=== PATIENT | male | born 1930 | race Caucasian/White ===

== ENCOUNTER 2017-06-15 10:44 | Inpatient (IN) | payer OTHER ==
[~2017-06-15] VITALS: Ht 172.7 cm; Wt 71.8 kg
[2017-06-15 11:54] LABS: HEMATOCRIT 34.4 % (38.0-50.0); HEMOGLOBIN 11.9 G/DL (12.5-16.6); MCH 32.7 PG (29.0-34.0); MCHC 34.6 G/DL (30.0-36.0); MCV 94.5 FL (86-99); PLATELET COUNT 277 K/uL (156-360); RBC DIS.WIDTH-CV 13.1 % (11.8-14.6); RBC DIS.WIDTH-SD 44.7 % (39-53); RED BLOOD COUNT 3.64 M/uL (4.00-5.50); WHITE BLOOD COUNT 9.3 K/uL (4.1-10.2)
[2017-06-15 12:07] LABS: ALBUMIN 3.3 g/dL (3.2-4.8); CHLORIDE 103 mEq/L (99-109); POTASSIUM 4.2 mEq/L (3.7-5.4); SODIUM 136 mEq/L (136-147)
[2017-06-15 12:08] LABS: MAGNESIUM 2.3 mg/dL (1.3-2.7)
[2017-06-15 12:10] LABS: GLUCOSE 112 mg/dL (70-99); TOTAL PROTEIN 6.5 g/dL (6.4-8.3)
[2017-06-15 12:12] LABS: TOTAL BILIRUBIN 0.7 mg/dL (0.0-1.0)
[2017-06-15 12:13] LABS: ALKALINE PHOSPHATASE 86 IU/L (3-129)
[2017-06-15 12:14] LABS: GFR ESTIMATE (CALCULATED) > 59 mL/min/ (58.99-99999)
[2017-06-15 12:15] LABS: AST (GOT) 14 IU/L (2-34); UREA NITROGEN (BUN) 14 mg/dL (9-23)
[2017-06-15 12:16] LABS: ALT (GPT) 13 IU/L (3-49)
[2017-06-15 12:20] LABS: TROP-I INTERPRETATION NEGATIVE; TROPONIN-I 0.09 ng/mL (0.0-0.30)
[2017-06-15] MEDS ORDERED: LO-DOSE ASPIRIN81 M2 PO (13:10)
[2017-06-15] MEDS ORDERED: LIPITOR80 MG PO (13:10)
[2017-06-15] MEDS ORDERED: LASIX20 MG PO (13:11)
[2017-06-15] MEDS ORDERED: COREG3.125 M1 PO (13:11)
[2017-06-15] MEDS ORDERED: VITAMIN B-12500 MC5 SL (13:11)
[2017-06-15] MEDS ORDERED: PLAVIX75 MG PO (13:11)
[2017-06-15] MEDS ORDERED: FOLIC ACID1 MG PO (13:11)
[2017-06-15] MEDS ORDERED: ATARAX,VISTARIL25 MG PO (13:12)
[2017-06-15] MEDS ORDERED: IMDUR30 MG PO (13:13)
[2017-06-15] MEDS ORDERED: NITROSTAT0.4 MG SL (13:17)
[2017-06-15 15:33] LABS: TROP-I INTERPRETATION INDETERMINATE
[2017-06-15 17:05] VITALS: BP 135/90
[2017-06-15 19:15] VITALS: BP 118/73
[2017-06-15 20:59] LABS: TROP-I INTERPRETATION POSITIVE; TROPONIN-I 3.11 ng/mL (0.0-0.30)
[2017-06-15 23:11] VITALS: BP 124/75
[2017-06-16 03:34] VITALS: BP 130/73
[2017-06-16 07:05] VITALS: BP 122/79
[2017-06-16 08:42] LABS: HEMATOCRIT 36.2 % (38.0-50.0); MCH 31.6 PG (29.0-34.0); MCHC 33.1 G/DL (30.0-36.0); MCV 95.3 FL (86-99); PLATELET COUNT 253 K/uL (156-360); RBC DIS.WIDTH-CV 13.2 % (11.8-14.6); WHITE BLOOD COUNT 7.3 K/uL (4.1-10.2)
[2017-06-16 10:25] LABS: CREATININE 1.1 MG/DL (0.6-1.3); GFR ESTIMATE (CALCULATED) > 59 mL/min/ (58.99-99999); GLUCOSE 110 mg/dL (70-99); UREA NITROGEN (BUN) 17 mg/dL (9-23)
[2017-06-16 11:29] LABS: CHLORIDE 101 MEQ/L (99-109); POTASSIUM 3.9 MEQ/L (3.7-5.4); SODIUM 136 MEQ/L (136-147)
[2017-06-16 11:50] VITALS: BP 90/54
[2017-06-16 13:52] LABS: TROP-I INTERPRETATION POSITIVE; TROPONIN-I 7.25 ng/mL (0.0-0.30)
[2017-06-16 14:40] VITALS: BP 98/54
[2017-06-16 18:25] LABS: TROP-I INTERPRETATION POSITIVE
[2017-06-16 19:15] VITALS: BP 103/60
[2017-06-17] VITALS: BP 97/61
[2017-06-17 04:00] VITALS: BP 98/50
[2017-06-17 05:17] LABS: BASOPHIL (%) 0.5 % (0-1); EOSINOPHIL (%) 2.2 % (0-5); EOSINOPHIL COUNT 0.2 K/uL (0-0.3); HEMATOCRIT 31.3 % (38.0-50.0); HEMOGLOBIN 10.5 G/DL (12.5-16.6); IMMATURE GRANULOCYTE (%) 0.5 % (0.0-0.7); LYMPHOCYTE (%) 13.1 % (15-42); MCH 31.7 PG (29.0-34.0); MCHC 33.5 G/DL (30.0-36.0); MCV 94.6 FL (86-99); MONOCYTE (%) 8.2 % (3-12); MONOCYTE COUNT 0.6 K/uL (0-0.8); NEUTROPHIL (%) 75.5 % (45-76); NEUTROPHIL COUNT 5.5 K/uL (1.8-6.4); PLATELET COUNT 207 K/uL (156-360); RBC DIS.WIDTH-CV 13.2 % (11.8-14.6); RBC DIS.WIDTH-SD 44.8 % (39-53); RED BLOOD COUNT 3.31 M/uL (4.00-5.50); WHITE BLOOD COUNT 7.3 K/uL (4.1-10.2)
[2017-06-17 05:47] LABS: CHLORIDE 102 MEQ/L (99-109); CREATININE 1.2 MG/DL (0.6-1.3); GFR ESTIMATE (CALCULATED) > 59 mL/min/ (58.99-99999); GLUCOSE 91 mg/dL (70-99); POTASSIUM 3.9 MEQ/L (3.7-5.4); SODIUM 134 MEQ/L (136-147); UREA NITROGEN (BUN) 20 mg/dL (9-23)
[2017-06-17 05:57] LABS: TROP-I INTERPRETATION POSITIVE; TROPONIN-I 4.96 ng/mL (0.0-0.30)
[2017-06-17 07:30] VITALS: BP 114/67
[2017-06-17 11:12] VITALS: BP 126/79
[2017-06-17] MEDS ORDERED: RANEXA500 MG PO (12:32)
== END 2017-06-17 16:08 | disposition home health service (06) | DRG 282 ==
LOC: EME 10:44 → EDOF 14:28 → ENRESERV 14:29 → 4SOUTH 16:48
PROVIDERS: Family Medicine; Internal Medicine; Internal Medicine Cardiovascular Disease
DX: I22.2 Subsequent non-ST elevation (NSTEMI) myocardial infarction (principal); I21.4 Non-ST elevation (NSTEMI) myocardial infarction; I11.0 Hypertensive heart disease with heart failure; I50.9 Heart failure, unspecified; I25.10 Atherosclerotic heart disease of native coronary artery without angina pectoris; E78.5 Hyperlipidemia, unspecified; I35.0 Nonrheumatic aortic (valve) stenosis; F41.9 Anxiety disorder, unspecified; Z95.5 Presence of coronary angioplasty implant and graft; Z95.0 Presence of cardiac pacemaker; Z79.02 Long term (current) use of antithrombotics/antiplatelets; Z79.82 Long term (current) use of aspirin; Z87.891 Personal history of nicotine dependence
CPT/HCPCS: 71045; 80048; 80053; 83735; 83880; 84484; 85025; 85027; 85730; 93005; 93306; 99281; 99285; G0378; J1650; J7030; J7040; Q0177

== ENCOUNTER 2017-07-13 14:52 | Inpatient (IN) | payer OTHER ==
[~2017-07-13] VITALS: Ht 177.8 cm; Wt 72.5 kg
[~2017-07-13 14:52] MED LIST: ATARAX,VISTARIL25 MG PO; COREG6.25 M1 PO; FOLIC ACID1 MG PO; IMDUR30 MG PO; LASIX20 MG PO; LIPITOR80 MG PO; LO-DOSE ASPIRIN81 M2 PO; NITROSTAT0.4 MG SL; PLAVIX75 MG PO; RANEXA500 MG PO; VITAMIN B-12500 MC5 SL
[2017-07-13 16:36] LABS: BASOPHIL (%) 0.4 % (0-1); EOSINOPHIL (%) 3.2 % (0-5); EOSINOPHIL COUNT 0.2 K/uL (0-0.3); HEMOGLOBIN 9.1 G/DL (12.5-16.6); IMMATURE GRANULOCYTE (%) 0.4 % (0.0-0.7); LYMPHOCYTE (%) 11.6 % (15-42); LYMPHOCYTE COUNT 0.6 K/uL (1.0-2.8); MCH 32.2 PG (29.0-34.0); MCV 91.9 FL (86-99); MONOCYTE (%) 13.5 % (3-12); MONOCYTE COUNT 0.7 K/uL (0-0.8); NEUTROPHIL (%) 70.9 % (45-76); NEUTROPHIL COUNT 3.7 K/uL (1.8-6.4); PLATELET COUNT 213 K/uL (156-360); RBC DIS.WIDTH-CV 13.9 % (11.8-14.6); RBC DIS.WIDTH-SD 47.2 % (39-53); RED BLOOD COUNT 2.83 M/uL (4.00-5.50); WHITE BLOOD COUNT 5.2 K/uL (4.1-10.2)
[2017-07-13 16:45] LABS: INTER. NORMALIZED RATIO 1.1
[2017-07-13 16:48] LABS: CHLORIDE 94 mEq/L (99-109); POTASSIUM 4.6 mEq/L (3.7-5.4); SODIUM 127 mEq/L (136-147)
[2017-07-13 16:49] LABS: GLUCOSE 83 mg/dL (70-99)
[2017-07-13 16:50] LABS: PTT 30.8 SEC (25-37)
[2017-07-13 16:53] LABS: CREATININE 1.1 mg/dL (0.6-1.3); GFR ESTIMATE (CALCULATED) > 59 mL/min/ (58.99-99999)
[2017-07-13 16:54] LABS: UREA NITROGEN (BUN) 12 mg/dL (9-23)
[2017-07-13 16:58] LABS: TROP-I INTERPRETATION NEGATIVE; TROPONIN-I 0.08 ng/mL (0.0-0.30)
[2017-07-13 17:42] LABS: HDL CHOLESTEROL 44 MG/DL (Desirable>=40); LDL CHOLESTEROL 42 mg/dL (Desirable<100); NON-HDL CHOLESTEROL 52 mg/dL (Desirable<160); TOTAL CHOLESTEROL 96 mg/dL (Desirable<200); TRIGLYCERIDES 48 MG/DL (Normal: <150)
[2017-07-13 18:17] LABS: APPEARANCE CLEAR ((CLEAR)); BILIRUBIN NEGATIVE; BLOOD NEGATIVE; COLOR YELLOW ((YELLOW)); GLUCOSE (STRIP) NEGATIVE; KETONES NEGATIVE; LEUKOCYTES NEGATIVE; NITRITE NEGATIVE; PROTEIN (STRIP) NEGATIVE; SPECIFIC GRAVITY 1.009 (1.000-1.030); UCUL ADDED? NO; UROBILINOGEN 0.2 MG/DL (0.2-1.0)
[2017-07-13] MEDS ORDERED: PRINIVIL5 MG PO (20:47)
[2017-07-13] MEDS ORDERED: ZOLOFT50 MG PO (20:48)
[2017-07-13] MEDS ORDERED: ZESTRIL2.5 MG PO (22:51)
[2017-07-13] MEDS ORDERED: ATARAX10 MG PO (22:54)
[2017-07-14 00:47] VITALS: BP 148/64
[2017-07-14 03:32] VITALS: BP 98/50
[2017-07-14 07:05] VITALS: BP 151/69
[2017-07-14 09:03] LABS: BASOPHIL (%) 0.7 % (0-1); EOSINOPHIL (%) 3.3 % (0-5); EOSINOPHIL COUNT 0.2 K/uL (0-0.3); HEMATOCRIT 26.6 % (38.0-50.0); IMMATURE GRANULOCYTE (%) 0.2 % (0.0-0.7); LYMPHOCYTE (%) 13.4 % (15-42); LYMPHOCYTE COUNT 0.6 K/uL (1.0-2.8); MCH 31.1 PG (29.0-34.0); MCHC 33.8 G/DL (30.0-36.0); MONOCYTE COUNT 0.6 K/uL (0-0.8); NEUTROPHIL (%) 69.4 % (45-76); NEUTROPHIL COUNT 3.2 K/uL (1.8-6.4); PLATELET COUNT 217 K/uL (156-360); RBC DIS.WIDTH-CV 14.1 % (11.8-14.6); RBC DIS.WIDTH-SD 47.1 % (39-53); RED BLOOD COUNT 2.89 M/uL (4.00-5.50); WHITE BLOOD COUNT 4.5 K/uL (4.1-10.2)
[2017-07-14 09:24] LABS: CHLORIDE 95 MEQ/L (99-109); CREATININE 1.3 MG/DL (0.6-1.3); GFR ESTIMATE (CALCULATED) 55 mL/min/ (58.99-99999); GLUCOSE 99 mg/dL (70-99); POTASSIUM 3.9 MEQ/L (3.7-5.4); SODIUM 128 MEQ/L (136-147); UREA NITROGEN (BUN) 13 mg/dL (9-23)
[2017-07-14 11:08] VITALS: BP 107/53
[2017-07-14 15:17] VITALS: BP 113/56
[2017-07-14 15:56] LABS: THYROTROPIN (TSH) 3.2 MIU/L (0.4-5.5)
[2017-07-14 19:19] VITALS: BP 114/56
[2017-07-15] VITALS (8 sets, daily range): BP systolic 82–127; BP diastolic 51–60
[2017-07-15 08:07] LABS: BASOPHIL (%) 0.4 % (0-1); EOSINOPHIL (%) 4.6 % (0-5); EOSINOPHIL COUNT 0.2 K/uL (0-0.3); HEMATOCRIT 27.4 % (38.0-50.0); HEMOGLOBIN 9.3 G/DL (12.5-16.6); IMMATURE GRANULOCYTE (%) 0.4 % (0.0-0.7); LYMPHOCYTE (%) 16.2 % (15-42); LYMPHOCYTE COUNT 0.7 K/uL (1.0-2.8); MCH 31.4 PG (29.0-34.0); MCHC 33.9 G/DL (30.0-36.0); MCV 92.6 FL (86-99); MONOCYTE (%) 11.6 % (3-12); MONOCYTE COUNT 0.5 K/uL (0-0.8); NEUTROPHIL (%) 66.8 % (45-76); PLATELET COUNT 202 K/uL (156-360); RBC DIS.WIDTH-CV 14.3 % (11.8-14.6); RBC DIS.WIDTH-SD 48.1 % (39-53); RED BLOOD COUNT 2.96 M/uL (4.00-5.50); WHITE BLOOD COUNT 4.6 K/uL (4.1-10.2)
[2017-07-15 08:29] LABS: CHLORIDE 94 MEQ/L (99-109); CREATININE 1.2 MG/DL (0.6-1.3); GFR ESTIMATE (CALCULATED) > 59 mL/min/ (58.99-99999); GLUCOSE 94 mg/dL (70-99); POTASSIUM 4.1 MEQ/L (3.7-5.4); SODIUM 128 MEQ/L (136-147); UREA NITROGEN (BUN) 16 mg/dL (9-23)
[2017-07-16 06:34] LABS: BASOPHIL (%) 0.2 % (0-1); EOSINOPHIL (%) 4.8 % (0-5); EOSINOPHIL COUNT 0.2 K/uL (0-0.3); HEMATOCRIT 24.8 % (38.0-50.0); HEMOGLOBIN 8.5 G/DL (12.5-16.6); IMMATURE GRANULOCYTE (%) 0.6 % (0.0-0.7); LYMPHOCYTE (%) 13.5 % (15-42); LYMPHOCYTE COUNT 0.7 K/uL (1.0-2.8); MCH 31.8 PG (29.0-34.0); MCHC 34.3 G/DL (30.0-36.0); MCV 92.9 FL (86-99); MONOCYTE (%) 10.4 % (3-12); MONOCYTE COUNT 0.5 K/uL (0-0.8); NEUTROPHIL (%) 70.5 % (45-76); NEUTROPHIL COUNT 3.5 K/uL (1.8-6.4); PLATELET COUNT 190 K/uL (156-360); RBC DIS.WIDTH-CV 14.3 % (11.8-14.6); RBC DIS.WIDTH-SD 48.4 % (39-53); RED BLOOD COUNT 2.67 M/uL (4.00-5.50)
[2017-07-16 06:58] LABS: CHLORIDE 96 MEQ/L (99-109); CREATININE 1.2 MG/DL (0.6-1.3); GFR ESTIMATE (CALCULATED) > 59 mL/min/ (58.99-99999); GLUCOSE 92 mg/dL (70-99); POTASSIUM 3.9 MEQ/L (3.7-5.4); SODIUM 126 MEQ/L (136-147); UREA NITROGEN (BUN) 17 mg/dL (9-23)
[2017-07-16 08:01] VITALS: BP 126/59
[2017-07-16 10:19] LABS: HEMOGLOBIN A1c (GLYCOHEMOGLOB) 5.9 % (Below 5.7)
[2017-07-17 00:10] VITALS: BP 115/54
[2017-07-17 05:56] LABS: BASOPHIL (%) 0.4 % (0-1); EOSINOPHIL (%) 5.3 % (0-5); EOSINOPHIL COUNT 0.3 K/uL (0-0.3); HEMATOCRIT 26.2 % (38.0-50.0); HEMOGLOBIN 8.7 G/DL (12.5-16.6); IMMATURE GRANULOCYTE (%) 0.6 % (0.0-0.7); LYMPHOCYTE (%) 14.5 % (15-42); LYMPHOCYTE COUNT 0.7 K/uL (1.0-2.8); MCHC 33.2 G/DL (30.0-36.0); MCV 93.2 FL (86-99); MONOCYTE (%) 10.2 % (3-12); MONOCYTE COUNT 0.5 K/uL (0-0.8); NEUTROPHIL COUNT 3.5 K/uL (1.8-6.4); PLATELET COUNT 205 K/uL (156-360); RBC DIS.WIDTH-CV 14.2 % (11.8-14.6); RBC DIS.WIDTH-SD 48.4 % (39-53); RED BLOOD COUNT 2.81 M/uL (4.00-5.50); WHITE BLOOD COUNT 5.1 K/uL (4.1-10.2)
[2017-07-17 06:20] LABS: ALBUMIN 2.8 G/DL (3.2-4.8); ALKALINE PHOSPHATASE 66 IU/L (3-129); ALT (GPT) 10 IU/L (3-49); AST (GOT) 13 IU/L (2-34); CHLORIDE 96 MEQ/L (99-109); CREATININE 1.2 MG/DL (0.6-1.3); GFR ESTIMATE (CALCULATED) > 59 mL/min/ (58.99-99999); GLUCOSE 90 mg/dL (70-99); POTASSIUM 4.4 MEQ/L (3.7-5.4); SODIUM 128 MEQ/L (136-147); TOTAL BILIRUBIN 0.4 MG/DL (0.0-1.0); TOTAL PROTEIN 5.3 G/DL (6.4-8.3); UREA NITROGEN (BUN) 19 mg/dL (9-23)
[2017-07-17 07:13] VITALS: BP 126/61
[2017-07-17 10:25] LABS: HEPATITIS C ANTIBODY Nonreactive
[2017-07-17 15:26] VITALS: BP 117/58
[2017-07-17 23:52] VITALS: BP 115/59
[2017-07-18 05:26] LABS: BASOPHIL (%) 0.4 % (0-1); EOSINOPHIL (%) 4.7 % (0-5); EOSINOPHIL COUNT 0.2 K/uL (0-0.3); HEMATOCRIT 23.9 % (38.0-50.0); HEMOGLOBIN 8.2 G/DL (12.5-16.6); IMMATURE GRANULOCYTE (%) 0.4 % (0.0-0.7); LYMPHOCYTE (%) 14.8 % (15-42); LYMPHOCYTE COUNT 0.7 K/uL (1.0-2.8); MCH 31.9 PG (29.0-34.0); MCHC 34.3 G/DL (30.0-36.0); MONOCYTE COUNT 0.5 K/uL (0-0.8); NEUTROPHIL (%) 69.7 % (45-76); NEUTROPHIL COUNT 3.3 K/uL (1.8-6.4); PLATELET COUNT 190 K/uL (156-360); RBC DIS.WIDTH-CV 14.4 % (11.8-14.6); RBC DIS.WIDTH-SD 49.5 % (39-53); RED BLOOD COUNT 2.57 M/uL (4.00-5.50); WHITE BLOOD COUNT 4.7 K/uL (4.1-10.2)
[2017-07-18 05:57] LABS: CHLORIDE 96 MEQ/L (99-109); CREATININE 1.4 MG/DL (0.6-1.3); GFR ESTIMATE (CALCULATED) 51 mL/min/ (58.99-99999); GLUCOSE 95 mg/dL (70-99); POTASSIUM 4.2 MEQ/L (3.7-5.4); SODIUM 127 MEQ/L (136-147); UREA NITROGEN (BUN) 20 mg/dL (9-23)
[2017-07-18 08:15] VITALS: BP 125/61
[2017-07-18 15:36] VITALS: BP 105/54
[2017-07-18 16:31] VITALS: BP 110/58
[2017-07-18 23:34] VITALS: BP 102/50
[2017-07-19 05:49] LABS: BASOPHIL (%) 0.4 % (0-1); EOSINOPHIL COUNT 0.2 K/uL (0-0.3); HEMATOCRIT 23.8 % (38.0-50.0); IMMATURE GRANULOCYTE (%) 0.6 % (0.0-0.7); LYMPHOCYTE (%) 14.1 % (15-42); LYMPHOCYTE COUNT 0.7 K/uL (1.0-2.8); MCH 31.6 PG (29.0-34.0); MCHC 33.6 G/DL (30.0-36.0); MCV 94.1 FL (86-99); MONOCYTE (%) 9.6 % (3-12); MONOCYTE COUNT 0.5 K/uL (0-0.8); NEUTROPHIL (%) 70.3 % (45-76); NEUTROPHIL COUNT 3.4 K/uL (1.8-6.4); PLATELET COUNT 191 K/uL (156-360); RBC DIS.WIDTH-CV 14.6 % (11.8-14.6); RED BLOOD COUNT 2.53 M/uL (4.00-5.50); WHITE BLOOD COUNT 4.8 K/uL (4.1-10.2)
[2017-07-19 06:16] LABS: CHLORIDE 95 MEQ/L (99-109); CREATININE 1.2 MG/DL (0.6-1.3); GFR ESTIMATE (CALCULATED) > 59 mL/min/ (58.99-99999); GLUCOSE 88 mg/dL (70-99); POTASSIUM 4.3 MEQ/L (3.7-5.4); SODIUM 128 MEQ/L (136-147); UREA NITROGEN (BUN) 20 mg/dL (9-23)
[2017-07-19 07:57] VITALS: BP 153/68
[2017-07-19] MEDS ORDERED: SODIUM CHLORIDE1 G1 PO (11:17)
[2017-07-19] MEDS ORDERED: NITROSTAT0.4 MG SL (14:52)
[2017-07-19] MEDS ORDERED: RANEXA500 MG PO (14:52)
== END 2017-07-19 15:50 | disposition home or self-care (01) | DRG 69 ==
LOC: EME 14:52 → EDOF 22:47 → ENRESERV 22:57 → 5SOUTH 07-14 00:25 → EDOF 07-14 00:25 → 5SOUTH 07-14 14:45
PROVIDERS: Emergency Medicine; Internal Medicine Nephrology; Physician Assistant
DX: G45.9 Transient cerebral ischemic attack, unspecified (principal); E22.2 Syndrome of inappropriate secretion of antidiuretic hormone; I65.23 Occlusion and stenosis of bilateral carotid arteries; I25.10 Atherosclerotic heart disease of native coronary artery without angina pectoris; Z95.0 Presence of cardiac pacemaker; I13.0 Hypertensive heart and chronic kidney disease with heart failure and stage 1 through stage 4 chronic kidney disease, or unspecified chronic kidney disease; N18.3 Chronic kidney disease, stage 3 (moderate); Z95.5 Presence of coronary angioplasty implant and graft; R73.03 Prediabetes; I25.2 Old myocardial infarction; Z79.02 Long term (current) use of antithrombotics/antiplatelets; Z79.82 Long term (current) use of aspirin; D64.9 Anemia, unspecified; Z87.891 Personal history of nicotine dependence; Z82.49 Family history of ischemic heart disease and other diseases of the circulatory system; Z91.013 Allergy to seafood; R26.9 Unspecified abnormalities of gait and mobility
CPT/HCPCS: 70496; 70498; 71046; 76705; 76770; 80048; 80053; 80061; 81003; 82533 91; 83036; 83930; 83935; 84300; 84443; 84484; 85025; 85610; 85730; 86803; 93005; 97530 GO; 99281; 99285; G0378; J1644; J7030; J7040

== ENCOUNTER 2017-10-05 20:04 | Observation (INO) | payer OTHER ==
[~2017-10-05] VITALS: Ht 177.8 cm; Wt 66.4 kg
[~2017-10-05 20:04] MED LIST changes: +PRINIVIL5 MG PO; +SODIUM CHLORIDE1 G1 PO; +ZESTRIL2.5 MG PO; +ZOLOFT50 MG PO
[2017-10-05 20:38] LABS: HEMATOCRIT 27.6 % (38.0-50.0); MCH 30.8 PG (29.0-34.0); MCHC 32.6 G/DL (30.0-36.0); MCV 94.5 FL (86-99); PLATELET COUNT 240 K/uL (156-360); RBC DIS.WIDTH-CV 18.7 % (11.8-14.6); RBC DIS.WIDTH-SD 65.1 % (39-53); RED BLOOD COUNT 2.92 M/uL (4.00-5.50); WHITE BLOOD COUNT 6.1 K/uL (4.1-10.2)
[2017-10-05 20:46] LABS: CHLORIDE 109 mEq/L (99-109); POTASSIUM 4.9 mEq/L (3.7-5.4)
[2017-10-05 20:47] LABS: SODIUM 142 mEq/L (136-147)
[2017-10-05 20:49] LABS: GLUCOSE 115 mg/dL (70-99)
[2017-10-05 20:52] LABS: CREATININE 1.4 mg/dL (0.6-1.3); GFR ESTIMATE (CALCULATED) 51 mL/min/ (58.99-99999)
[2017-10-05 20:53] LABS: UREA NITROGEN (BUN) 33 mg/dL (9-23)
[2017-10-05 21:53] LABS: APPEARANCE CLEAR ((CLEAR)); BILIRUBIN NEGATIVE; BLOOD NEGATIVE; COLOR YELLOW ((YELLOW)); GLUCOSE (STRIP) NEGATIVE; KETONES NEGATIVE; LEUKOCYTES NEGATIVE; NITRITE NEGATIVE; PROTEIN (STRIP) NEGATIVE; SPECIFIC GRAVITY 1.024 (1.000-1.030); UCUL ADDED? NO; UROBILINOGEN 0.2 MG/DL (0.2-1.0)
[2017-10-05] MEDS ORDERED: MIRTAZAPINE30 MG PO (23:20)
[2017-10-05] MEDS ORDERED: MELATONIN3 MG PO (23:20)
[2017-10-06 02:31] VITALS: BP 175/77
[2017-10-06 02:51] LABS: TROP-I INTERPRETATION NEGATIVE; TROPONIN-I 0.05 ng/mL (0.0-0.30)
[2017-10-06 03:22] LABS: HDL CHOLESTEROL 52 MG/DL (Desirable>=40); LDL CHOLESTEROL 48 mg/dL (Desirable<100); NON-HDL CHOLESTEROL 55 mg/dL (Desirable<160); TOTAL CHOLESTEROL 107 mg/dL (Desirable<200); TRIGLYCERIDES 36 MG/DL (Normal: <150)
[2017-10-06 05:29] LABS: BASOPHIL (%) 0.4 % (0-1); EOSINOPHIL (%) 3.2 % (0-5); EOSINOPHIL COUNT 0.2 K/uL (0-0.3); HEMATOCRIT 24.5 % (38.0-50.0); HEMOGLOBIN 7.9 G/DL (12.5-16.6); IMMATURE GRANULOCYTE (%) 0.4 % (0.0-0.7); LYMPHOCYTE (%) 14.5 % (15-42); LYMPHOCYTE COUNT 0.8 K/uL (1.0-2.8); MCH 30.3 PG (29.0-34.0); MCHC 32.2 G/DL (30.0-36.0); MCV 93.9 FL (86-99); MONOCYTE (%) 9.5 % (3-12); MONOCYTE COUNT 0.5 K/uL (0-0.8); NEUTROPHIL COUNT 4.1 K/uL (1.8-6.4); PLATELET COUNT 200 K/uL (156-360); RBC DIS.WIDTH-CV 18.7 % (11.8-14.6); RBC DIS.WIDTH-SD 63.8 % (39-53); RED BLOOD COUNT 2.61 M/uL (4.00-5.50); WHITE BLOOD COUNT 5.7 K/uL (4.1-10.2)
[2017-10-06 05:51] LABS: CHLORIDE 107 MEQ/L (99-109); CREATININE 1.2 MG/DL (0.6-1.3); GFR ESTIMATE (CALCULATED) > 59 mL/min/ (58.99-99999); GLUCOSE 103 mg/dL (70-99); POTASSIUM 4.3 MEQ/L (3.7-5.4); SODIUM 140 MEQ/L (136-147); UREA NITROGEN (BUN) 28 mg/dL (9-23)
[2017-10-06 07:50] VITALS: BP 140/62
[2017-10-06 11:50] VITALS: BP 126/61
[2017-10-06 14:08] LABS: FERRITIN 22 NG/ML (22-322); IRON 44 MCG/DL (35-150)
[2017-10-06 15:55] VITALS: BP 128/59
[2017-10-07 10:55] LABS: HEMOGLOBIN A1c (GLYCOHEMOGLOB) 5.7 % (Below 5.7)
[2017-10-09 00:18] LABS: Folate, RBC 24.5 % (()); RFOL Hematocrit >1000 (>280)
== END 2017-10-06 18:07 | disposition home or self-care (01) ==
LOC: EME 20:04 → EDOF 10-06 01:16 → 4SOUTH 10-06 02:11
PROVIDERS: Emergency Medicine; Internal Medicine
DX: N17.9 Acute kidney failure, unspecified (principal); H54.7 Unspecified visual loss; I12.9 Hypertensive chronic kidney disease with stage 1 through stage 4 chronic kidney disease, or unspecified chronic kidney disease; E11.22 Type 2 diabetes mellitus with diabetic chronic kidney disease; N18.3 Chronic kidney disease, stage 3 (moderate); I25.10 Atherosclerotic heart disease of native coronary artery without angina pectoris; D64.9 Anemia, unspecified; E78.5 Hyperlipidemia, unspecified; R26.9 Unspecified abnormalities of gait and mobility; I25.2 Old myocardial infarction; G47.00 Insomnia, unspecified; Z95.5 Presence of coronary angioplasty implant and graft; Z91.013 Allergy to seafood; Z95.0 Presence of cardiac pacemaker; Z82.49 Family history of ischemic heart disease and other diseases of the circulatory system
CPT/HCPCS: 70450; 71046; 80048; 80061; 81003; 82607; 82728; 82747 90; 82948; 83036; 83540; 84484; 85025; 85027; 93005; G0378; J1644; J7030; Q0177